=== PATIENT | male | born 1950 | race Caucasian/White ===

== ENCOUNTER → 2023-07-18 07:14 | Outpatient (REF) | payer MEDICARE, OTHER, SELFPAY ==
[2023-07-18 07:57] LABS: % Eosinophils 4.4 % (0-6); % Immature Granulocytes 0.3 % (0-0.5); % Lymphocytes 39.3 % (20.5-51.1); % Monocytes 9.3 % (1.7-9.3); % Neutrophils 45.7 % (42.2-75.2); Absolute Basophils 0.1 10^3/uL (0-0.2); Absolute Eosinophils 0.3 10^3/uL (0-0.7); Absolute Lymphocytes 2.4 10^3/uL (1.2-3.4); Absolute Monocytes 0.6 10^3/uL (0.1-0.6); Absolute Neutrophils 2.8 10^3/uL (1.4-6.5); Hematocrit 41.4 % (39.0-52.0); Hemoglobin 14.6 g/dL (13.0-18.0); Mean Corp Hgb Conc. 35.3 g/dL (33.0-37.0); Mean Corpuscular Hgb 31.5 pg (27.0-31.0); Mean Corpuscular Volume 89.2 fL (80.0-94.0); Mean Platelet Volume 11.1 fL (7.4-10.4); Nucleated Red Blood Cells % 0 % (-); Platelet Count 204 10^3/uL (130-400); Red Blood Cell Count 4.64 10^6/uL (4.70-6.10); Red Cell Dist. Width 12.3 % (11.5-14.5); White Blood Cell Count 6.1 10^3/uL (4.8-10.8)
[2023-07-18 08:31] LABS: ALT (SGPT) 87 U/L (0-50); AST (SGOT) 54 U/L (17-59); Alkaline Phosphatase 109 U/L (38-126); Blood Urea Nitrogen 22 mg/dl (9-20); Calcium 9.1 mg/dl (8.4-10.2); Carbon Dioxide 27 mmol/L (22-30); Chloride 104 mmol/L (98-107); Glucose 109 mg/dl (70-99); HDL Cholesterol 64 mg/dl; LDL Cholesterol, Calculated 160 mg/dl; Potassium 4.4 mmol/L (3.5-5.1); Sodium 138 mmol/L (135-145); Total Bilirubin 0.8 mg/dl (0.2-1.3); Total Cholesterol 240 mg/dl (50-199); Total Protein 6.9 g/dl (6.3-8.2); Triglyceride 84 mg/dl (10-149); Very Low Density Lipoprotein 16 mg/dl (0-30); eGFR > 60.00
== END ==
LOC: REG 07:14
PROVIDERS: ATTENDING PHYSICIAN Internal Medicine
DX: I10 Essential (primary) hypertension (principal); I70.0 Atherosclerosis of aorta; I35.1 Nonrheumatic aortic (valve) insufficiency; Z00.01 Encounter for general adult medical examination with abnormal findings
CPT/HCPCS: 36415; 80053; 80061; 85025

== ENCOUNTER → 2023-08-02 09:01 | Outpatient (REF) | payer MEDICARE, OTHER, SELFPAY ==
[2023-08-02 10:36] LABS: ALT (SGPT) 25 U/L (0-50); AST (SGOT) 28 U/L (17-59); Albumin 4.2 g/dl (3.5-5.0); Alkaline Phosphatase 84 U/L (38-126); Blood Urea Nitrogen 24 mg/dl (9-20); Carbon Dioxide 27 mmol/L (22-30); Chloride 105 mmol/L (98-107); Glucose 100 mg/dl (70-99); HDL Cholesterol 57 mg/dl; LDL Cholesterol, Calculated 161 mg/dl; Potassium 4.6 mmol/L (3.5-5.1); Sodium 136 mmol/L (135-145); Total Bilirubin 0.8 mg/dl (0.2-1.3); Total Cholesterol 235 mg/dl (50-199); Total Protein 7.3 g/dl (6.3-8.2); Triglyceride 89 mg/dl (10-149); Very Low Density Lipoprotein 17 mg/dl (0-30); eGFR > 60.00
== END ==
LOC: REG 09:01
PROVIDERS: ATTENDING PHYSICIAN Internal Medicine
DX: R74.8 Abnormal levels of other serum enzymes (principal)
CPT/HCPCS: 36415; 80053; 80061

== ENCOUNTER → 2023-10-03 07:23 | Outpatient (REF) | payer MEDICARE, OTHER, SELFPAY ==
[2023-10-03 08:10] LABS: HDL Cholesterol 61 mg/dl; LDL Cholesterol, Calculated 161 mg/dl; Total Cholesterol 238 mg/dl (50-199); Triglyceride 82 mg/dl (10-149); Very Low Density Lipoprotein 16 mg/dl (0-30)
[2023-10-03 08:27] LABS: Free T4 0.99 ng/dl (0.78-2.19)
[2023-10-03 08:42] LABS: TSH 2.05 uIU/ml (0.47-4.68)
== END ==
LOC: REG 07:23
PROVIDERS: ATTENDING PHYSICIAN Internal Medicine
DX: E78.5 Hyperlipidemia, unspecified (principal)
CPT/HCPCS: 36415; 80061; 84439; 84443

== ENCOUNTER → 2024-02-14 10:54 | Outpatient (REF) | payer MEDICARE, OTHER, SELFPAY | LOC: REG 10:54 | PROVIDERS: ATTENDING PHYSICIAN Internal Medicine | DX: C61 Malignant neoplasm of prostate (principal) | CPT/HCPCS: 36415; 84153 ==

== ENCOUNTER → 2024-04-07 06:29 | Day surgery (SDC) | payer MEDICARE, OTHER, SELFPAY | LOC: GI 06:29 | PROVIDERS: ATTENDING PHYSICIAN Internal Medicine | PROC: 0DJD8ZZ Inspection of Lower Intestinal Tract, Via Natural or Artificial Opening Endoscopic (ICD-10-PCS; 2024-04-07) | DX: Z12.11 Encounter for screening for malignant neoplasm of colon (principal); Z86.0100 Personal history of colon polyps, unspecified; K57.30 Diverticulosis of large intestine without perforation or abscess without bleeding; K55.20 Angiodysplasia of colon without hemorrhage; K64.8 Other hemorrhoids | CPT/HCPCS: G0105 ==

== ENCOUNTER → 2024-06-12 13:02 | Outpatient (REF) | payer MEDICARE, OTHER, SELFPAY | LOC: REG 13:02 | PROVIDERS: ATTENDING PHYSICIAN Specialist; FAMILY PHYSICIAN Internal Medicine | DX: C61 Malignant neoplasm of prostate (principal) | CPT/HCPCS: 36415; 84153 ==

== ENCOUNTER 2024-06-12 22:01 | Emergency (ER) | payer MEDICARE, OTHER, SELFPAY ==
--- NOTE | 2024-06-12 22:38 | ED.GENMED ---
History of Present Illness
General
Chief Complaint: CODE
Source: patient and ambulance crew
Exam Limitations: clinical condition
Nursing documentation reviewed up to this point in time: agreed with
History of Present Illness
History of Present Illness:
Patient with history of hypertension, presents to ED for evaluation after patient started to complain of chest pain and lost consciousness at his house. Per paramedics, patient started complaining of chest pain around 7:30 PM which worsened over
time. 911 was dispatched to patient's house around 8:50 PM. Shortly prior to arrival paramedics, patient lost consciousness and CPR was started by patient's spouse. When paramedics arrived, patient was unconscious and initial rhythm revealed
ventricular fibrillation. Patient received shocked x 3, along with epinephrine. Afterwards, patient was found to be in asystole. CPR continued and patient was intubated, along with additional epinephrine injection. Patient allegedly regained
pulse for few minutes, and immediately became bradycardic without consciousness. External pacing was attempted without success. Since then, patient remained in PEA rhythm. Upon arrival, patient with CPR in progress via [place], and noted to be in
PEA rhythm on the monitor.
Review of Systems
Review of Systems
Allergies reviewed?: Yes
Unable to obtain full review of systems at this time due to: due to acuity
All Other Systems: Not applicable
Phy Exam
Physical Exam
Physical Exam:
Physical Exam
General: somnolent and unresponsive to verbal or physical stimuli. CPR in progress
Head: nc/at.
Neck: no jvd
Heart: CPR in progress. no palpable pulse detected.
Lungs: no acute respiratory distress. clear bilaterally
Abdomen: normal bowel sounds. not tender.
Neuro: alert and oriented. no focal neurological deficits
Skin: no rash
Psychiatric: well kept. interactive and cooperative
Extremities: no edema. no calf tenderness.
Course
Orders/Labs/Results
Orders:
Orders
06/12/24 22:02
Amiodarone [Cordarone] 300 mg .ROUTE .STK-MED ONE
EPINEPHrine [Adrenalin 1 mg/10 ml] 1 mg .ROUTE .STK-MED ONE
Sodium Bicarbonate 50 meq .ROUTE .STK-MED ONE
06/12/24 22:13
Calcium CHLORIDE [Calcium Chloride 10% Syringe] 1,000 mg .ROUTE .STK-MED ONE
MDM/Problems Addressed
MDM/Problems Addressed:
Patient evaluated immediately upon arrival, with CPR in progress via [facility] thumper, and being bagged, as patient was intubated prehospital. Initial evaluation reveals patient to be in PEA rhythm. Patient was given epinephrine, amiodarone 300 mg IV
bolus, as well as sodium bicarb and calcium chloride. Unfortunately, patient remains in PEA rhythm without any meaningful responsiveness. With downtime exceeding 1 hour and 30 minutes, discussed with patient's spouse, via phone.
Decision made to stop resuscitation, after long discussion. When CPR discontinued, patient now found to be in asystole. Patient pronounced at 10:32 PM.
Discussed with medical research associate's office, Mr. Rizoiott Everton. No indication for autopsy at this point. Body will be released to family.
Critical care statement: A total of 30 minutes of critical care time was provided for this patient. This includes management of unstable vital signs, evaluation of the patient at bedside, reviewing the patient's pertinent medical records, review of
old EKGs and review of pertinent medical records. This time with separate from time utilized to perform the aforementioned documented procedures
*Critical Care Note
Total Time (30-74mins, 75-104mins- exclusive of procedures): 30 min
ED Attending Note
-
Portions of this chart may have been created with voice recognition software.� Occasional wrong word or��sound alike� substitutions may have occurred due to the inherent limitations of voice recognition software.
Discharge Plan
Departure
Patient Disposition:
Date of Disposition: 06/12/24
Time of Disposition: 22:58
Discharge Problem:
Cardiac arrest, Ventricular fibrillation
Prescriptions:
No Action
hydrochlorothiazide
losartan
Referrals:
UNKNOWN,NO INTERVIEW [Family Provider] -
Interventions
Interventions:
*Risk Screen - Suicide Last Done: 06/12/24 22:05
*General Assessment Last Done: 06/12/24 22:05
*Neglect/Abuse Screening Last Done: 06/12/24 22:05
ED- Fall Risk Assessment Last Done: 06/13/24 01:01
*ED COVID-19 Vaccine History Last Done: 06/12/24 22:05
*Nursing Disposition Last Done: 06/13/24 01:01
ED- Cardiac Assessment Last Done: 06/12/24 22:10
ED- Pulmonary Assessment Last Done: 06/12/24 22:10
Discharge Date and Time
Discharge Date/Time: 06/13/24 01:03
Print Language: POLISH
--- NOTE | 2024-06-12 22:43 | EDRN ---
Pt arrives to ED @ 2202 via EMS from home
911 call made @ 2049 for report of chest pain
First responders arrived and was administering CPR, AED placed and 1 shock given.
Medics arrives and pt was found to be in V-fib
# shocks were given, pt intubated on scene and Epi given.
ROSC was obtained and was bradycardic.
Pt was paced for a short period and lost pulses again.
Continuous CPR started with MELANY machine.
10 rounds of Epinephrine given en route.
On arrival to ED MELANY machine in place and continuous compressions are in progress.
Pulse check @ 2202 shows PEA, ETCO2 13
2208 - PEA, 300mg Amiodarone given, 1mg Epinephrine given
2211 - PEA, 1 amp Sodium Bicarb given
2213 - PEA 1g Calcium chloride given
0- PEA, ETCO2 15 - bedside ultrasound in progress @ bedside
2220 - Dr Knight speaking with family in family room
2231 - Asystole, Time of called by Dr Knight
--- NOTE | 2024-06-13 16:01 | CHAP ---
Called by Security at 9:45 am to be with family of Attila Loyola after his . Provided emotional and spiritual support to [employer] and [employer], as they viewed the body and awaited the arrival of Home staff several hours later.
== END 2024-06-13 01:03 | disposition expired ==
LOC: EMR 22:01
PROVIDERS: EMERGENCY PHYSICIAN Emergency Medicine
DX: I46.9 Cardiac arrest, cause unspecified (principal); I49.01 Ventricular fibrillation; I10 Essential (primary) hypertension
CPT/HCPCS: 99291; 92950